=== PATIENT | female | born 1955 | race Caucasian/White ===

== ENCOUNTER → 2017-11-03 | Outpatient (CLI) | payer OTHER ==
[~2017-11-03] MED LIST: ATOR20TA22 PO; MULT1CAP59 PO; NONE NOW; OMEG-11 PO
--- NOTE | 2017-11-03 15:18 | RADIOLOGY IMAGING REPORT ---
FACILITY: [facility] PATIENT NAME: SANTIAGO LAURENT : [id number] MR: [id number] V: [id number] EXAM DATE: [id number] ORDERING PHYSICIAN: MIKHAIL JI TECHNOLOGIST: Lucy Cabral PROCEDURE:BILATERAL DIGITAL SCREENING MAMMOGRAM WITH CAD ASSISTED INTERPRETATION & 3D TOMOSYNTHESIS COMPARISON:Prior mammograms 09/01/2013, 08/18/2013, 07/13/2012. INDICATIONS:screening FINDINGS: The breast tissue is heterogeneously dense. Faint cluster of benign appearing calcifications upper outer quadrant of Right breast is stable. There is no dominant mass, suspicious cluster of microcalcifications or persistent areas of architectural distortion in either breast. DIAGNOSTIC CATEGORY 2--BENIGN FINDING. RECOMMENDATIONS: ROUTINE MAMMOGRAM AND CLINICAL EVALUATION IN 1 YR. IMPRESSION: BIRADS 2: Benign finding. Dictated by: Sukhdev Whitley M.D. on 11/03/2017 at 15:02 Transcribed by: ABRAHAM on 11/03/2017 at 15:14 Approved by: Sukhdev Whitley M.D. on 11/03/2017 at 15:17 [facility]
== END ==
LOC: MAMO 03:00
PROVIDERS: ATTEND Nurse Practitioner Family
DX: Z12.31 Encounter for screening mammogram for malignant neoplasm of breast (principal)
CPT/HCPCS: 77063; 77067

== ENCOUNTER 2017-11-25 00:48 | Day surgery (SDC) | payer OTHER ==
[~2017-11-25] VITALS: Ht 175.3 cm; Wt 65.8 kg
[2017-11-25] VITALS (8 sets, daily range): BP systolic 88–135; BP diastolic 55–90
[2017-11-25] MEDS ORDERED: LIDOCAINE/SOD BICARB 8.4% SYR ID ONE (07:10)
[2017-11-25] MEDS ORDERED: NORMOSOL R SOLN(*) 1000 ML BAG 1,000 ML IV PRN (07:10)
--- NOTE | 2017-11-25 09:09 | Short(Outpt) Discharge Summary ---
Discharge Summary Reason for Hosp/Final Diag: (1) Family history of colon cancer in mother Hospital Course & Plan: Colonoscopy with polypectomy x1 completed without problems. Departure Discharge to: Home, Self Care Discharge Instructions Home Meds Reported Medications Atorvastatin Calcium (LIPITOR) 20 Mg Tablet, 1 TAB PO QDAY, TAB 10/22/17 [place]-3 Fatty Acids/Fish Oil (FISH OIL 1,000 MG CAPSULE) Unknown Strength Capsule, PO, CAPSULE 10/22/17 Multivitamin (MULTIVITAMINS) 1 Each Capsule, 1 TAB PO QDAY, CAPSULE 10/22/17 Diet: Regular Activity: As Tolerated Special Instructions: Your colonoscopy was completed without problems and your prep was excellent (Good Job!!). I removed a tiny polyp from your colon and it was sent to pathology. My office will call you in the next week or so and let you know what the polyp is but, in any case, I recommend that your next colonoscopy be in 5 years. LEA RODRIGUEZ MD Nov 25, 2017 09:09
[2017-11-25] MEDS ORDERED: PROPOFOL EMUL(*) 10MG/ML 20 ML 20 ML ONE (09:38)
[2017-11-25] MEDS ORDERED: PROPOFOL EMUL(*) 10MG/ML 20 ML 40 ML ONE (09:38)
== END 2017-11-25 10:30 | disposition home or self-care (01) ==
LOC: OR 00:48
PROVIDERS: ATTEND Surgery
DX: Z12.11 Encounter for screening for malignant neoplasm of colon (principal); D12.0 Benign neoplasm of cecum; Z80.0 Family history of malignant neoplasm of digestive organs
CPT/HCPCS: 00811; 45380; 88305; J2704

== ENCOUNTER 2018-05-17 17:44 | Emergency (ER) | payer OTHER ==
--- NOTE | 2018-05-17 18:01 | ER Report ---
History and Physical Time Seen By MD: 18:01 Hx. of Stated Complaint: ABD PAIN HPI/ROS CHIEF COMPLAINT: Abdominal pain HISTORY OF PRESENT ILLNESS: 63-year-old female patient presents to emergency room with complaint of right upper quadrant abdominal pain. Patient states pain started about 3:30 or 4 this afternoon. Patient states there is nothing that she's noted which makes the pain better or worse. Patient denies any fevers, chills, nausea, vomiting or diarrhea. Patient states that the pain seems to come in waves, stroke times that will be up to a 8/10, and the rest of the time it will be a 4/10. Patient states she has not had any medication for this. REVIEW OF SYSTEMS: Respiratory: No cough, no dyspnea. Cardiovascular: No chest pain, no palpitations. Gastrointestinal: As noted above. Musculoskeletal: No back pain. Allergies: Coded Allergies: No Known Drug Allergies (Verified , 05/17/18) Home Meds Active Scripts Hydrocodone Bit/Acetaminophen (HYDROCODON-ACETAMINOPHEN 5-325) 1 Each Tablet, 1 EACH PO Q4-6H PRN for PAIN, #8 TAB Prov:ANDREW WOOD PHOTOGRAVURE PRESS OPERATOR 05/17/18 Reported Medications Atorvastatin Calcium (LIPITOR) 20 Mg Tablet, 1 TAB PO QDAY, TAB 10/22/17 [place]-3 Fatty Acids/Fish Oil (FISH OIL 1,000 MG CAPSULE) Unknown Strength Capsule, PO, CAPSULE 10/22/17 Multivitamin (MULTIVITAMINS) 1 Each Capsule, 1 TAB PO QDAY, CAPSULE 10/22/17 Past Medical/Surgical History Patient has a past medical history of hyperlipidemia, alcohol use. Patient has a surgical history of a cyst removed from ovary. Reviewed Nurses Notes: Yes Hx Smoking: No Smoking Status: Never Smoker Hx Substance Use Disorder: No Hx Alcohol Use: Yes Constitutional Vital Sign - Last 24 Hours 05/17/18 05/17/18 05/17/18 05/17/18 17:57 18:00 18:14 18:29 Temp 98.2 Pulse 80 74 70 Resp 16 19 13 B/P (MAP) 139/74 137/95 (109) Pulse Ox 96 95 95 O2 Delivery Room Air 05/17/18 05/17/18 05/17/18 05/17/18 18:30 18:44 18:59 19:00 Pulse 71 81 Resp 20 B/P (MAP) 130/93 (105) 137/66 (89) Pulse Ox 83 05/17/18 05/17/18 05/17/18 19:14 19:19 20:10 Pulse 78 79 71 Resp 12 16 B/P (MAP) 120/74 (89) Pulse Ox 91 96 O2 Delivery Room Air Physical Exam General Appearance: The patient is alert, has no immediate need for airway protection and no current signs of toxicity. Respiratory: Chest is non tender, lungs are clear to auscultation. Cardiac: regular rate and rhythm Gastrointestinal: Abdomen is soft and tender in the right upper quadrant, no masses, bowel sounds normal. Musculoskeletal: Neck: Neck is supple and non tender. Extremities have full range of motion and are non tender. Skin: No rashes or lesions. DIFFERENTIAL DIAGNOSIS: After history and physical exam differential diagnosis was considered for abdominal pain including but not limited to appendicitis, c holecystitis, gastritis and urinary tract infection. Medical Decision Making Data Points Result Diagram: 05/17/18182805/17/181828 Laboratory Hematology Test 05/17/18 17:50 05/17/18 18:29 Urine Color Straw Urine Clarity Clear Urine pH 6.0 pH (4.8-9.5) Urine Specific [place] 1.008 Urine Protein Negative mg/dL (NEGATIVE) Urine Glucose (UA) Negative mg/dL (NEGATIVE) Urine Ketones Negative mg/dL (NEGATIVE) Urine Blood Negative (NEGATIVE) Urine Nitrite Negative (NEGATIVE) Urine Bilirubin Negative (NEGATIVE) Urine Urobilinogen Negative mg/dL (0.2-1.9) Urine Leukocyte Esterase Moderate (NEGATIVE) Urine RBC <1 /HPF (0-2/HPF) Urine WBC 6 /HPF (0-5/HPF) Urine Squamous Epithelial Cells Many /LPF (</=FEW) Urine Bacteria Negative /HPF (NONE-FEW) Urine Mucus None /HPF (NONE-FEW) Red Blood Count 4.90 M/uL (4.17-5.56) Mean Corpuscular Volume 91.0 fL (80.0-96.0) Mean Corpuscular Hemoglobin 30.5 pg (26.0-33.0) Mean Corpuscular Hemoglobin Concent 33.6 g/dL (32.0-36.0) Red Cell Distribution Width 13.3 % (11.5-14.5) Mean Platelet Volume 8.2 fL (7.2-11.1) Neutrophils (%) (Auto) 58.9 % (39.4-72.5) Lymphocytes (%) (Auto) 30.2 % (17.6-49.6) Monocytes (%) (Auto) 7.4 % (4.1-12.4) Eosinophils (%) (Auto) 2.4 % (0.4-6.7) Basophils (%) (Auto) 1.1 % (0.3-1.4) Nucleated RBC Relative Count (auto) 0.1 /100WBC Neutrophils # (Auto) 3.1 K/uL (2.0-7.4) Lymphocytes # (Auto) 1.6 K/uL (1.3-3.6) Monocytes # (Auto) 0.4 K/uL (0.3-1.0) Eosinophils # (Auto) 0.1 K/uL (0.0-0.5) Basophils # (Auto) 0.1 K/uL (0.0-0.1) Nucleated RBC Absolute Count (auto) 0.00 K/uL Sodium Level 140 mmol/L (137-145) Potassium Level 4.0 mmol/L (3.5-5.0) Chloride Level 104 mmol/L (98-107) Carbon Dioxide Level 27 mmol/L (22-31) Blood Urea Nitrogen 19 mg/dl (7-18) Creatinine 0.90 mg/dl (0.52-1.04) Glomerular Filtration Rate Calc > 60.0 Random Glucose 93 mg/dl (75-110) Calcium Level 9.5 mg/dl (8.4-10.2) Total Bilirubin 0.6 mg/dl (0.2-1.3) Aspartate Amino Transf (AST/SGOT) 26 U/L (0-35) Alanine Aminotransferase (ALT/SGPT) 42 U/L (0-56) Alkaline Phosphatase 82 U/L (0-126) C-Reactive Protein < 0.5 mg/dl (<1.0) Total Protein 7.4 g/dl (6.3-8.2) Albumin 4.8 g/dl (3.5-5.0) Amylase Level 115 U/L (0-110) Lipase 242 U/L (23-300) Chemistry Test 05/17/18 17:50 3/10/19 18:29 Urine Color Straw Urine Clarity Clear Urine pH 6.0 pH (4.8-9.5) Urine Specific [place] 1.008 Urine Protein Negative mg/dL (NEGATIVE) Urine Glucose (UA) Negative mg/dL (NEGATIVE) Urine Ketones Negative mg/dL (NEGATIVE) Urine Blood Negative (NEGATIVE) Urine Nitrite Negative (NEGATIVE) Urine Bilirubin Negative (NEGATIVE) Urine Urobilinogen Negative mg/dL (0.2-1.9) Urine Leukocyte Esterase Moderate (NEGATIVE) Urine RBC <1 /HPF (0-2/HPF) Urine WBC 6 /HPF (0-5/HPF) Urine Squamous Epithelial Cells Many /LPF (</=FEW) Urine Bacteria Negative /HPF (NONE-FEW) Urine Mucus None /HPF (NONE-FEW) White Blood Count 5.2 k/uL (4.5-11.0) Red Blood Count 4.90 M/uL (4.17-5.56) Hemoglobin 15.0 g/dL (12.0-16.0) Hematocrit 44.6 % (34.0-47.0) Mean Corpuscular Volume 91.0 fL (80.0-96.0) Mean Corpuscular Hemoglobin 30.5 pg (26.0-33.0) Mean Corpuscular Hemoglobin Concent 33.6 g/dL (32.0-36.0) Red Cell Distribution Width 13.3 % (11.5-14.5) Platelet Count 279 K/uL (150-450) Mean Platelet Volume 8.2 fL (7.2-11.1) Neutrophils (%) (Auto) 58.9 % (39.4-72.5) Lymphocytes (%) (Auto) 30.2 % (17.6-49.6) Monocytes (%) (Auto) 7.4 % (4.1-12.4) Eosinophils (%) (Auto) 2.4 % (0.4-6.7) Basophils (%) (Auto) 1.1 % (0.3-1.4) Nucleated RBC Relative Count (auto) 0.1 /100WBC Neutrophils # (Auto) 3.1 K/uL (2.0-7.4) Lymphocytes # (Auto) 1.6 K/uL (1.3-3.6) Monocytes # (Auto) 0.4 K/uL (0.3-1.0) Eosinophils # (Auto) 0.1 K/uL (0.0-0.5) Basophils # (Auto) 0.1 K/uL (0.0-0.1) Nucleated RBC Absolute Count (auto) 0.00 K/uL Glomerular Filtration Rate Calc > 60.0 Calcium Level 9.5 mg/dl (8.4-10.2) Total Bilirubin 0.6 mg/dl (0.2-1.3) Aspartate Amino Transf (AST/SGOT) 26 U/L (0-35) Alanine Aminotransferase (ALT/SGPT) 42 U/L (0-56) Alkaline Phosphatase 82 U/L (0-126) C-Reactive Protein < 0.5 mg/dl (<1.0) Total Protein 7.4 g/dl (6.3-8.2) Albumin 4.8 g/dl (3.5-5.0) Amylase Level 115 U/L (0-110) Lipase 242 U/L (23-300) Urinalysis Test 05/17/18 17:50 Urine Color Straw Urine Clarity Clear Urine pH 6.0 pH (4.8-9.5) Urine Specific [place] 1.008 Urine Protein Negative mg/dL (NEGATIVE) Urine Glucose (UA) Negative mg/dL (NEGATIVE) Urine Ketones Negative mg/dL (NEGATIVE) Urine Blood Negative (NEGATIVE) Urine Nitrite Negative (NEGATIVE) Urine Bilirubin Negative (NEGATIVE) Urine Urobilinogen Negative mg/dL (0.2-1.9) Urine Leukocyte Esterase Moderate (NEGATIVE) Urine RBC <1 /HPF (0-2/HPF) Urine WBC 6 /HPF (0-5/HPF) Urine Squamous Epithelial Cells Many /LPF (</=FEW) Urine Bacteria Negative /HPF (NONE-FEW) Urine Mucus None /HPF (NONE-FEW) EKG/Imaging Imaging EXAMINATION: Right upper quadrant abdominal ultrasound HISTORY: Abdominal pain. COMPARISON: None. FINDINGS: Liver: Normal hepatic echotexture. No focal liver lesions identified. Antegrade flow is visualized in the main portal vein. Gallbladder: Cholelithiasis. A single mobile 11 mm shadowing gallstone is visualized in the gallbladder. No ultrasound findings to suggest cholecystitis. Gallbladder is only mildly distended. No gallbladder wall thickening or pericholecystic fluid. Negative sonographic Avitia sign. Bile Ducts: No biliary ductal dilatation. The common duct measures 3 mm. Pancreas: The head and body of the pancreas are moderately well visualized and unremarkable where seen. Right kidney: Normal echogenicity of the right kidney. The renal cortical parenchyma is maintained. The right kidney measures 10.0 cm in length. Mild prominence of the right renal pelvis without caliectasis. Aorta: Segmentally visualized. Patent and normal in caliber where seen. IVC: Patent. Ascites: None. IMPRESSION: 1. Cholelithiasis, without ultrasound evidence of cholecystitis. 2. No bile duct dilatation. 3. Mild prominence of the right renal pelvis without caliectasis. Report Dictated By: Stanley Rodriguez MD at 05/17/2018 7:40 PM Report E-Signed By: Stanley Rodriguez MD at 05/17/2018 7:43 PM ED Course/Re-evaluation ED Course Patient was admitted to an exam room, history and physical were obtained. Differential diagnoses were considered. On examination patient had tenderness in the right upper quadrant. A CBC, CMP, urinalysis, lipase were checked. The lab results were unremarkable. There is no elevation in the LFTs, there is no elevation in the lipase. An ultrasound was done of the gallbladder. That was positive for a stone in the gallbladder. The tech noted that the stone would shift as the patient was sitting or laying and would cover the common bile duct. I suspect that is what was causing her pain today. Patient states she had complete resolution of her pain while she was here. Patient states that the fluid seemed to help tremendously with pain. I believe that is more than likely change in position moving the stone away from the common bile duct. We will go ahead and discharge patient home at this time. We will give her limited supply of pain medication in case she has any repeat gall attacks. The patient should follow-up with Dr. Rodriguez for evaluation and discussion on whether or not to remove the gallbladder. Patient and her verbalized understanding and agreement with plan. Decision to Disposition Date: May 17, 2018 Decision to Disposition Time: 20:01 Depart Departure Latest Vital Signs Vital Signs Date Time Temp Pulse Resp B/P (MAP) Pulse Ox O2 Delivery O2 Flow Rate FiO2 05/17/18 20:10 71 16 120/74 (89) 96 Room Air 05/17/18 17:57 98.2 Impression: Primary Impression: Cholelithiasis Condition: Improved Disposition: HOME OR SELF-CARE Referrals: LEA RODRIGUEZ MD New Scripts Hydrocodone Bit/Acetaminophen (HYDROCODON-ACETAMINOPHEN 5-325) 1 Each Tablet 1 EACH PO Q4-6H PRN for PAIN, #8 TAB Prov: ANDREW WOOD 05/17/18 Patient Instructions: Gallstones (ED) Additional Instructions: Increase fluid intake. Get plenty of rest. Limit activity by pain. Follow up with Dr. Rodriguez, call to make an appointment. This may worsen, if it does please return to the ER. Continue with your normal medications. Problem Qualifiers Primary Impression: Cholelithiasis Cholelithiasis location: gallbladder Cholecystitis presence: without tati cystitis Biliary obstruction: without biliary obstruction Qualified Codes: K80.20 - Calculus of gallbladder without cholecystitis without obstruction ANDREW WOOD May 17, 2018 18:01
[2018-05-17] MEDS ORDERED: NS(*) 0.9% 1000 ML BAG 1,000 ML IV ONE (18:08)
[2018-05-17 18:43] LABS: PLATELET COUNT, AUTOMATED 279 K/uL (150-450)
--- NOTE | 2018-05-17 19:47 | RADIOLOGY IMAGING REPORT ---
FACILITY: [facility] [place] PATIENT NAME: Comfort Mcleod : 1955 MR: [id number] V: [id number] EXAM DATE: ORDERING PHYSICIAN: ANDREW WOOD TECHNOLOGIST: Location: [facility] [place] Patient: Comfort Mcleod : 1955 Visit/Account:[id number] Date of Sevice: 05/17/2018 EXAMINATION: Right upper quadrant abdominal ultrasound HISTORY: Abdominal pain. COMPARISON: None. FINDINGS: Liver: Normal hepatic echotexture. No focal liver lesions identified. Antegrade flow is visualized in the main portal vein. Gallbladder: Cholelithiasis. A single mobile 11 mm shadowing gallstone is visualized in the gallblad tammie. No ultrasound findings to suggest cholecystitis. Gallbladder is only mildly distended. No gallbl adder wall thickening or pericholecystic fluid. Negative sonographic Avitia sign. Bile Ducts: No biliary ductal dilatation. The common duct measures 3 mm. Pancreas: The head and body of the pancreas are moderately well visualized and unremarkable where se en. Right kidney: Normal echogenicity of the right kidney. The renal cortical parenchyma is maintained. T he right kidney measures 10.0 cm in length. Mild prominence of the right renal pelvis without caliect asis. Aorta: Segmentally visualized. Patent and normal in caliber where seen. IVC: Patent. Ascites: None. IMPRESSION: 1. Cholelithiasis, without ultrasound evidence of cholecystitis. 2. No bile duct dilatation. 3. Mild prominence of the right renal pelvis without caliectasis. Report Dictated By: Stanley Rodriguez MD at 05/17/2018 7:40 PM Report E-Signed By: Stanley Rodriguez MD at 05/17/2018 7:43 PM WSN:[id number]
[2018-05-17] MEDS ORDERED: HYDR-385 PO (19:58)
[2018-05-17 20:10] VITALS: BP 120/74
[2018-05-17] MEDS ORDERED: ACET/HYDROC 5/325MG TH ER ONLY 2 TAB/BOTTLE PO ONE (20:10)
== END 2018-05-17 20:14 | disposition home or self-care (01) ==
LOC: ER 17:57
DX: K80.20 Calculus of gallbladder without cholecystitis without obstruction (principal)
CPT/HCPCS: 76705; 81001; 82150; 83690; 85025; 86140; 87088; 96360; 99284; J7030; 82040; 82247; 82310; 82374; 82435; 82565; 82947; 84075; 84132; 84155; 84295; 84450; 84460; 84520

== ENCOUNTER 2018-06-25 00:49 | Day surgery (SDC) | payer OTHER ==
[~2018-06-25] VITALS: Ht 177.8 cm; Wt 67.6 kg
[2018-06-25] VITALS (18 sets, daily range): BP systolic 97–126; BP diastolic 51–80
[~2018-06-25 00:49] MED LIST changes: +HYDR-385 PO
[2018-06-25] MEDS ORDERED: NORMOSOL R SOLN(*) 1000 ML BAG 1,000 ML IV PRN (06:45)
[2018-06-25] MEDS ORDERED: FAMOTIDINE 20 MG TAB PO ONE (06:45)
[2018-06-25] MEDS ORDERED: LIDOCAINE/SOD BICARB 8.4% SYR ID ONE (06:45)
[2018-06-25] MEDS ORDERED: MIDAZOLAM 2 MG/2 ML VIAL IVP PRN (06:45)
[2018-06-25] MEDS ORDERED: INDOCYANINE GREEN 25 MG VIAL IVP ONE (06:45)
[2018-06-25] MEDS ORDERED: AMPICILLIN/SULBACT (*) 3 GM VL 3 GM in NS(*) 0.9% 100 ML MINI-BAG 100 ML IVPB ONE (06:45)
[2018-06-25] MEDS ORDERED: ONDANSETRON 4 MG/2 ML VIAL ONE ×2 (07:11→14:19)
[2018-06-25] MEDS ORDERED: SUGAMMADEX SOD 200 MG/2 ML SDV ONE (07:11)
[2018-06-25] MEDS ORDERED: fentaNYL CITR 250 MCG/5 ML AMP ONE (07:11)
[2018-06-25] MEDS ORDERED: DEXAMETHASONE SOD 4 MG/ML VIAL ONE (07:11)
[2018-06-25] MEDS ORDERED: ROCURONIUM BROM 10 MG/ML 10 ML ONE (07:11)
[2018-06-25] MEDS ORDERED: PROPOFOL EMUL(*) 10MG/ML 20 ML 20 ML ONE (07:11)
[2018-06-25] MEDS ORDERED: LIDOCAINE MPF 1% 5 ML VIAL ONE (07:11)
[2018-06-25] MEDS ORDERED: HYDROmorphone HCL 2 MG/ML SDV ONE (07:14)
[2018-06-25] MEDS ORDERED: KETAMINE HCL-NS 50 MG/5 ML SYR ONE (07:14)
[2018-06-25] MEDS ORDERED: IOPAMIDOL 61% 75 ML INFUS BTL 0 ML ONE (07:29)
[2018-06-25] MEDS ORDERED: ROPIVACAINE 0.5% 20 ML VIAL ONE (07:29)
[2018-06-25] MEDS ORDERED: ACETAMINOPHEN 500 MG TAB PO ONE (07:45)
[2018-06-25] MEDS ORDERED: PREGABALIN 150 MG CAPSULE PO ONE (07:45)
[2018-06-25] MEDS ORDERED: OXYC-373 PO (09:06)
[2018-06-25] MEDS ORDERED: DOCU-416 PO (09:06)
[2018-06-25] MEDS ORDERED: fentaNYL CITR 100 MCG/2 ML AMP ONE ×2 (09:09→09:35)
--- NOTE | 2018-06-25 09:09 | Short(Outpt) Discharge Summary ---
Discharge Summary Reason for Hosp/Final Diag: (1) Cholelithiasis Status: Chronic Hospital Course & Plan: Robotic cholecystectomy completed without problems. Departure Discharge to: Home, Self Care Discharge Instructions Home Meds Active Scripts Docusate Sodium (COLACE) 100 Mg Capsule, 1 CAP PO BID, #30 CAP 0 Refills TAKE WITH A FULL GLASS OF WATER Prov:LEA RODRIGUEZ MD 06/25/18 Oxycodone Hcl/Acetaminophen (OXYCODONE-ACETAMINOPHEN 5-325) 1 Each Tablet, 1 TAB PO Q4H PRN for PAIN, #20 TAB 0 Refills Prov:LEA RODRIGUEZ MD 06/25/18 Reported Medications Atorvastatin Calcium (LIPITOR) 20 Mg Tablet, 1 TAB PO QDAY, TAB 10/22/17 Multivitamin (MULTIVITAMINS) 1 Each Capsule, 1 TAB PO QDAY, CAPSULE 10/22/17 Follow up Referrals: General Surgery - 07/08/18 @ Surgery, General with LEA RODRIGUEZ MD You have a follow up appointment scheduled with Dr. Rodriguez on 07/08/18, at 1:30pm. Diet: Regular Activity: As Tolerated Special Instructions: You may remove the white surgical dressings on 06/27/18, then you can shower. After showering, leave the incisions open to air but leave the steristrips in place until they fall off on their own. Do not immerse the incisions for 2 weeks after surgery. Problem Qualifiers (1) Cholelithiasis: Cholelithiasis location: gallbladder Cholecystitis presence: without cholecystitis Biliary obstruction: without biliary obstruction Qualified Codes: K80.20 - Calculus of gallbladder without cholecystitis without obs truction LEA RODRIGUEZ MD Jun 25, 2018 09:08
--- NOTE | 2018-06-25 09:14 | Post Operative Progress Note ---
Post Operative Progress Note Date: Jun 25, 2018 Time: 09:09 Surgeon: Tayler Dictation number: [id number] Anesthesia: GETA by Dr. Swan Pre-Op Diagnosis: Symptomatic cholelithiasis Post-Op Diagnosis: SHA Findings: C/W dx Procedure(s): Robotic cholecystectomy Specimen Removed:(May be N/A): GB and contents Complications: None Fluids: See anesthesia record Estimated Blood Loss: Minimal Date OP Note Dictated: Jun 25, 2018 Time OP Note Dictated: 09:10 LEA RODRIGUEZ MD Jun 25, 2018 09:14
--- NOTE | 2018-06-25 10:23 | OPERATIVE REPORT 1 ---
EVENT DATE: June 25, 2018 SURGEON: David Lester MD ANESTHESIOLOGIST: Noble Busby MD ANESTHESIA: General endotracheal. PREOPERATIVE DIAGNOSIS Symptomatic gallstones. POSTOPERATIVE DIAGNOSIS Symptomatic gallstones. PROCEDURE PERFORMED Robotic cholecystectomy. COMPLICATIONS None. CONDITION Stable. ESTIMATED BLOOD LOSS Minimal. INDICATIONS This is a 63-year old female who presented to my office with intermittent postprandial right upper quadrant abdominal pain who was found to have gallstones on ultrasound. She was requesting to have her gallbladder removed. DESCRIPTION OF PROCEDURE The patient was brought to the operating room and placed supine on the operating table. General endotracheal anesthesia was administered and her abdomen was prepped and draped in the sterile fashion. A time-out was completed and I injected the infraumbilical skin with 0.5% ropivacaine plain. I made a curvilinear smiley face type incision in the infraumbilical rim and dissected through the dermis and into the subcutaneous fat and identified the midline fascia. I made a vertical incision in the midline fascia, grasped the fascia with Miles clamps and then bluntly entered the peritoneal cavity with my finger. I placed two interrupted 0 Vicryl sutures transversely through the vertical defect and inserted a 12 mm Enciso type robotic port into this wound, secured into place with suture. I insufflated the abdomen to a pressure of 15 mmHg and inserted the robotic camera in through this port. Next, I placed three 8 mm ports, one on the right mid abdomen and two in the left side of the abdomen, one in the left mid abdomen and one in the anterior axillary line just under the costal margin on the left. After this was done, the patient was placed in reverse Trendelenburg and planed towards the left and then the robot was brought in, docked and targeted and instruments inserted I scrubbed out and went to the console, grasped the fundus of the gallbladder and retracted towards the patient's right shoulder. I grasped the infundibulum and tracked towards the patient's right hip. I used FireFly intermittently throughout this procedure to identify the common duct structures but this patient had almost no retroperitoneal or intra-abdominal fat and the structures were clearly visible even without FireFly. I then divided the peritoneum over the infundibulum of both the medial and lateral aspects of the gallbladder and stripped this down and identified clearly the cystic artery and cystic duct, where were cleaned off very easily, and then I clipped the artery proximally and distally in the duct with three clips distally but away from the common duct structures and one clip at the infundibular cystic duct junction. I divided the artery and duct between clips and then divided posterior attachments of the gallbladder from the gallbladder fossa. The gallbladder was placed in a surgical specimen retrieval bag and removed from abdomen. I inspected the right upper quadrant. There was no bleeding and the clips were in place on the duct and the artery and there was no bile leak or bleeding at the end of this case. I then scrubbed back in. The robot was undocked. All the instruments were removed. The abdomen was desufflated, ports removed and then the fascia was closed with another [id number] 0 Vicryl suture and all three of these were tied down. I then closed the skin at each port site with 4-0 Monocryl and subcuticular suture. Skin was cleaned, dried and Steri-Strips applied followed by sterile surgical dressings. The patient was awakened and extubated in the operating room and transferred to the recovery room in stable condition, having tolerated the procedure without any apparent problems. JANE
== END 2018-06-25 09:57 | disposition home or self-care (01) ==
LOC: OR 00:49
PROVIDERS: ATTEND Surgery
DX: K80.80 Other cholelithiasis without obstruction (principal)
CPT/HCPCS: 47562; 88304; J0295; J1100; J1170; J2001; J2250; J2405; J2704; J2795; J3010; J3490; S2900; Q9967